=== PATIENT | male | born 1970 | race Two or more races ===

== ENCOUNTER 2019-01-13 13:48 | Emergency (ER) | payer BC, MEDICARE ==
[~2019-01-13] VITALS: Ht 185.4 cm; Wt 140.0 kg
[2019-01-13 14:03] VITALS: BP 125/77
[2019-01-13] MEDS ORDERED: ibuprofen tablet 400 MG TABLET PO ONE (14:10)
== END 2019-01-13 15:51 | disposition home or self-care (01) ==
LOC: ER 13:48
DX: S92.351A Displaced fracture of fifth metatarsal bone, right foot, initial encounter for closed fracture (principal); X50.1XXA Overexertion from prolonged static or awkward postures, initial encounter; Y93.89 Activity, other specified; Y92.89 Other specified places as the place of occurrence of the external cause; Y99.8 Other external cause status
CPT/HCPCS: 29515; 73610; 73630; 99284